=== PATIENT | female | born 1995 | race African-American/Black ===

== ENCOUNTER 2019-11-17 16:31 | Emergency (ER) | payer MEDICAID ==
--- NOTE | 2019-11-17 16:50 | ER Document Report ---
ED Medical Screen (RME) - General Chief Complaint: Abdominal Pain Stated Complaint: ABDOMINAL PAIN Time Seen by Provider: 11/17/19 16:42 Primary Care Provider: RACEHL ORTEGA MD [Primary Care Provider] - Follow up as needed Notes: HPI: 24-year-old obese female presenting to the emergency department complaining of upper abdominal pain over the last 2 to 3 days. Decreased appetite. No vomiting. No fever. No dysuria although she states she has seen some blood in her urine. PHYSICAL EXAMINATION: Mild tenderness across the upper abdomen on palpation limited exam by positioning in triage I have greeted and performed a rapid initial assessment of this patient. A comprehensive ED assessment and evaluation of the patient, analysis of test results and completion of medical decision making process will be conducted by an additional ED providers. TRAVEL OUTSIDE OF THE [place] IN LAST 30 DAYS: No - Related Data Allergies/Adverse Reactions: amoxicillin trihydrate [From Augmentin] Allergy (Intermediate, Verified 11/17/19 16:41) Hives Potassium Clavulanate * [From Augmentin] Allergy (Intermediate, Verified 11/17/19 16:41) Hives doxycycline Allergy (Verified 11/17/19 16:41) Penicillins Allergy (Verified 11/17/19 16:41) Home Medications: metformin. insulin Past Medical History - Social History Chew tobacco use (# tins/day): No Frequency of alcohol use: Social Drug Abuse: None Family history: DM, Hypertension Pulmonary Medical History: Reports: Hx Asthma Endocrine Medical History: Reports: Hx Diabetes Mellitus Type 2 Past Surgical History: Reports: Hx Section - Immunizations Immunizations up to date: Yes Hx Diphtheria, Pertussis, Tetanus Vaccination: Yes Physical Exam - Vital signs Vitals: Temp Pulse Resp BP Pulse Ox 99.2 F 96 17 132/76 H 96 11/17/19 16:36 11/17/19 16:36 11/17/19 16:36 11/17/19 16:36 11/17/19 16:36 Course - Vital Signs Vital signs: Temp Pulse Resp BP Pulse Ox 99.2 F 96 17 132/76 H 96 11/17/19 16:42 11/17/19 16:36 11/17/19 16:36 11/17/19 16:36 11/17/19 16:36 Doctor's Discharge - Discharge Referrals: RACHEL ORTEGA MD [Primary Care Provider] - Follow up as needed
[2019-11-17 17:18] LABS: ABSOLUTE EOSINOPHILS # (AUTO) 0.4 10^3/uL (0.0-0.6); ABSOLUTE LYMPHOCYTES (AUTO) 3.6 10^3/uL (0.5-4.7); ABSOLUTE MONOCYTES (AUTO) 0.6 10^3/uL (0.1-1.4); ABSOLUTE NEUT (AUTO) 3.8 10^3/uL (1.7-8.2); BASOPHILS % (AUTO) 0.6 % (0-2); EOSINOPHILS % (AUTO) 4.5 % (0-6); HEMATOCRIT 41.5 % (36.0-47.0); HEMOGLOBIN 14.1 g/dL (12.0-15.5); LYMPHOCYTES % (AUTO) 42.8 % (13-45); MEAN CORPUSCULAR HEMOGLOBIN 26.2 pg (27.0-33.4); MEAN CORPUSCULAR HGB CONC 33.8 g/dL (32.0-36.0); MEAN CORPUSCULAR VOLUME 78 fl (80-97); MONOCYTES % (AUTO) 6.7 % (3-13); PLATELET COUNT 287 10^3/uL (150-450); RED BLOOD COUNT 5.35 10^6/uL (3.72-5.28); RED CELL DISTRIBUTION WIDTH 14.3 % (11.5-14.0); SEGMENTED NEUTROPHILS % (AUTO) 45.4 % (42-78); TOTAL CELLS COUNTED % (AUTO) 100 %; WHITE BLOOD COUNT 8.5 10^3/uL (4.0-10.5)
[2019-11-17 17:35] LABS: ALBUMIN 4.2 g/dL (3.5-5.0); ALKALINE PHOSPHATASE 114 U/L (38-126); ANION GAP 8 (5-19); ASPARTATE AMINO TRANSFERASE 30 U/L (14-36); BILIRUBIN,TOTAL 0.4 mg/dL (0.2-1.3); BLOOD UREA NITROGEN 8 mg/dL (7-20); CALCIUM 9.5 mg/dL (8.4-10.2); CARBON DIOXIDE 23 mmol/L (22-30); CHLORIDE 104 mmol/L (98-107); GLUCOSE 287 mg/dL (75-110); POTASSIUM 4.3 mmol/L (3.6-5.0); TOTAL PROTEIN 7.7 g/dL (6.3-8.2)
[2019-11-17 17:39] LABS: APPEARANCE,URINE CLOUDY; BILIRUBIN,URINE NEGATIVE (NEGATIVE); COLOR,URINE YELLOW; GLUCOSE, URINE >=500 mg/dL (NEGATIVE); KETONES,URINE 20 mg/dL (NEGATIVE); LEUKOCYTE ESTERASE,URINE TRACE (NEGATIVE); NITRITE,URINE NEGATIVE (NEGATIVE); PROTEIN,URINE 100 mg/dL (NEGATIVE); URINE SPECIFIC GRAVITY 1.043; UROBILINOGEN,URINE NEGATIVE mg/dL (<2.0)
[2019-11-17] MEDS ORDERED: NORMAL SALINE 1000 ML 1,000 ML IV PRN (18:19)
[2019-11-17] MEDS ORDERED: NITROFURANTOIN MONOHYD/M-CRYST 100 MG CAPSULE PO ONE (18:20)
--- NOTE | 2019-11-17 18:27 | RADIOLOGY REPORT (SQ) ---
EXAM DESCRIPTION: U/S ABDOMEN LIMITED W/O DOP IMAGES COMPLETED DATE/TIME: 11/17/2019 6:11 pm REASON FOR STUDY: upper abd pain COMPARISON: None. TECHNIQUE: Dynamic and static grayscale images acquired of the abdomen and recorded on PACS. Additio nal selected color Doppler and spectral images recorded. LIMITATIONS: None. FINDINGS: PANCREAS: No masses. The tail was obscured by gas. LIVER: Increased echogenicity. No masses. LIVER VASCULATURE: Normal directional flow of the main portal vein and hepatic veins. GALLBLADDER: No stones. Normal wall thickness. No pericholecystic fluid. ULTRASOUND-DETECTED PLASENCIA'S SIGN: Negative. INTRAHEPATIC DUCTS AND COMMON DUCT: CBD and intrahepatic ducts normal caliber. No filling defects. AORTA: No aneurysm. RIGHT KIDNEY: Normal size, 12 cm. Normal echogenicity. No solid or suspicious masses. No hydronephro sis. No calcifications. PERITONEAL AND RIGHT PLEURAL SPACE: No ascites or effusions. OTHER: No other significant findings. IMPRESSION: Hepatic steatosis. TECHNICAL DOCUMENTATION: JOB ID: [id number] 2010 [employer]- All Rights Reserved Reading location - IP/workstation name: [email or web address]
[2019-11-17 19:18] LABS: VENOUS BLOOD BASE EXCESS 0.3 mmol/L; VENOUS BLOOD HCO3 26.3 mmol/L (20-32); VENOUS BLOOD PCO2 47.5 mmHg (35-63); VENOUS BLOOD PH 7.36 (7.30-7.42)
--- NOTE | 2019-11-17 19:44 | ER Document Report ---
HPI - HPI Patient complains to provider of: Abdominal pain Time Seen by Provider: 11/17/19 16:42 Onset: Yesterday Onset/Duration: Gradual Quality of pain: No pain Pain Level: 3 Associated Symptoms: None Exacerbated by: Denies Relieved by: Denies - CONSTITUTIONAL Constitutional: DENIES: Fever, Chills - GASTROINTESTINAL Gastrointestinal: REPORTS: Abdominal Pain. DENIES: Black / Bloody Stools - URINARY Urinary: DENIES: Dysuria - REPRODUCTIVE Reproductive: DENIES: : Past Medical History - General Information source: Patient - Social History Smoking Status: Current Every Day Smoker Chew tobacco use (# tins/day): No Frequency of alcohol use: Social Drug Abuse: None Family History: Reviewed & Not Pertinent Patient has homicidal ideation: No Pulmonary Medical History: Reports: Hx Asthma Endocrine Medical History: Reports: Hx Diabetes Mellitus Type 2 Past Surgical History: Reports: Hx Section - Immunizations Immunizations up to date: Yes Hx Diphtheria, Pertussis, Tetanus Vaccination: Yes Vertical Provider Document - CONSTITUTIONAL Agree With Documented VS: Yes - INFECTION CONTROL TRAVEL OUTSIDE OF THE [place] IN LAST 30 DAYS: No - HEENT HEENT: Atraumatic, Conjuctival Injection, Normocephalic, PERRLA - NECK Neck: Normal Inspection - RESPIRATORY Respiratory: Breath Sounds Normal, No Respiratory Distress - CARDIOVASCULAR Cardiovascular: Regular Rate, Regular Rhythm - GI/ABDOMEN Gastrointestinal: Abdomen Soft, Abdomen Non-Tender - REPRODUCTIVE Female Genitalia: Normal Inspection, Abnormal Inspection - BACK Back: Normal Inspection - MUSCULOSKELETAL/EXTREMETIES Musculoskeletal/Extremeties: MAEW - NEURO Level of Consciousness: Awake, Alert Motor/Sensory: No Motor Deficit, No Sensory Deficit, No Pronator Drift - DERM Integumentary: Warm, Dry Course - Vital Signs Vital signs: Temp Pulse Resp BP Pulse Ox 99.2 F 96 17 132/76 H 96 11/17/19 16:42 11/17/19 16:36 11/17/19 16:36 11/17/19 16:36 11/17/19 16:36 - Laboratory Result Diagrams: 11/17/19 16:51 11/17/19 16:51 Laboratory results interpreted by me: 11/17/19 11/17/19 11/17/19 16:51 16:51 16:51 RBC 5.35 H MCV 78 L MCH 26.2 L RDW 14.3 H Sodium 135.1 L Creatinine 0.46 L Glucose 287 H ALT 37 H Urine Protein 100 H Urine Glucose (UA) >=500 H Urine Ketones 20 H Urine Blood LARGE H Ur Leukocyte Esterase TRACE H - Diagnostic Test Radiology results interpreted by me: 11/17/19 19:40 Labs- All tests 24 hr 11/17/19 11/17/19 11/17/19 16:51 16:51 16:51 WBC 8.5 RBC 5.35 H Hgb 14.1 Hct 41.5 MCV 78 L MCH 26.2 L MCHC 33.8 RDW 14.3 H Plt Count 287 Lymph % (Auto) 42.8 [place] % (Auto) 6.7 Eos % (Auto) 4.5 Baso % (Auto) 0.6 Absolute Neuts (auto) 3.8 Absolute Lymphs (auto) 3.6 Absolute Monos (auto) 0.6 Absolute Eos (auto) 0.4 Absolute Basos (auto) 0.0 Seg Neutrophils % 45.4 VBG pH VBG pCO2 VBG HCO3 VBG Base Excess Sodium 135.1 L Potassium 4.3 Chloride 104 Carbon Dioxide 23 Anion Gap 8 BUN 8 Creatinine 0.46 L Est GFR ( Amer) > 60 Est GFR (MDRD) Non-Af > 60 Glucose 287 H Calcium 9.5 Total Bilirubin 0.4 Direct Bilirubin 0.0 Neonat Total Bilirubin Not Reportable Neonat Direct Bilirubin Not Reportable Neonat Indirect Bili Not Reportable AST 30 ALT 37 H Alkaline Phosphatase 114 Total Protein 7.7 Albumin 4.2 Lipase 210.7 Serum HCG, Qual NEGATIVE Urine Color Urine Appearance Urine pH Ur Specific Royal Urine Protein Urine Glucose (UA) Urine Ketones Urine Blood Urine Nitrite Urine Bilirubin Urine Urobilinogen Ur Leukocyte Esterase Urine WBC (Auto) Urine RBC (Auto) Squamous Epi Cells Auto Urine Yeast (Budding) Urine Ascorbic Acid 11/17/19 11/17/19 16:51 19:10 WBC RBC Hgb Hct MCV MCH MCHC RDW Plt Count Lymph % (Auto) [place] % (Auto) Eos % (Auto) Baso % (Auto) Absolute Neuts (auto) Absolute Lymphs (auto) Absolute Monos (auto) Absolute Eos (auto) Absolute Basos (auto) Seg Neutrophils % VBG pH 7.36 VBG pCO2 47.5 VBG HCO3 26.3 VBG Base Excess 0.3 Sodium Potassium Chloride Carbon Dioxide Anion Gap BUN Creatinine Est GFR ( Amer) Est GFR (MDRD) Non-Af Glucose Calcium Total Bilirubin Direct Bilirubin Neonat Total Bilirubin Neonat Direct Bilirubin Neonat Indirect Bili AST ALT Alkaline Phosphatase Total Protein Albumin Lipase Serum HCG, Qual Urine Color YELLOW Urine Appearance CLOUDY Urine pH 6.0 Ur Specific Royal 1.043 Urine Protein 100 H Urine Glucose (UA) >=500 H Urine Ketones 20 H Urine Blood LARGE H Urine Nitrite NEGATIVE Urine Bilirubin NEGATIVE Urine Urobilinogen NEGATIVE Ur Leukocyte Esterase TRACE H Urine WBC (Auto) 3 Urine RBC (Auto) >182 Squamous Epi Cells Auto 45 Urine Yeast (Budding) PRESENT Urine Ascorbic Acid NEGATIVE Discharge - Discharge Clinical Impression: High glucose level UTI (urinary tract infection) Qualifiers: Urinary tract infection type: acute cystitis Hematuria presence: without hematuria Qualified Code(s): N30.00 - Acute cystitis without hematuria Condition: Fair Disposition: HOME, SELF-CARE Instructions: Urinary Tract Infection ([facility]), Urinary Anesthetic Agent ([facility]) Additional Instructions: Urinary Tract Infection Your evaluation indicates that you have a urinary tract infection. This is due to germs growing in the bladder. This is a common problem. This infection usually responds quickly to antibiotics. Your antibiotic should be taken exactly as prescribed. Drink plenty of fluids -- three to four quarts a day. Occasionally, a bladder anesthetic will be prescribed to help stop the feeling of urgency until the antibiotic has a chance to clear the infection. This may cause your urine to be dark orange. Certain urine infections require a culture. If the doctor obtained a culture, the results will be back in two days. You should call to see if a change in treatment is needed. A repeat urinalysis after you finish treatment is often recommended. The physician will let you know if further testing is required. Call the doctor if you develop fever, chills, flank pain, inability to urinate, or blood in the urine. Prescriptions: Nitrofurantoin Monohyd/M-Cryst [Macrobid 100 mg Capsule] 100 mg PO BID #20 cap Phenazopyridine HCl [Pyridium 200 mg Tablet] 200 mg PO TID #15 tablet Referrals: RACHEL ORTEGA MD [ACTIVE STAFF] - Follow up as needed
[2019-11-17 20:15] VITALS: BP 122/72
== END 2019-11-17 20:15 | disposition home or self-care (01) ==
LOC: ER 16:31
DX: N30.00 Acute cystitis without hematuria (principal); E11.9 Type 2 diabetes mellitus without complications; K76.0 Fatty (change of) liver, not elsewhere classified; J45.909 Unspecified asthma, uncomplicated; F17.200 Nicotine dependence, unspecified, uncomplicated; Z79.4 Long term (current) use of insulin
CPT/HCPCS: 99284; 36415; 83690; 84703; 85025; 80053; 81001; 82803; 76705; J7030; J3490; 96360; J8499

== ENCOUNTER 2020-01-18 07:00 | Day surgery (SDC) | payer MEDICAID ==
[2020-01-12 10:30] LABS: HEMATOCRIT 41.8 % (36.0-47.0); HEMOGLOBIN 13.6 g/dL (12.0-15.5); MEAN CORPUSCULAR HEMOGLOBIN 25.6 pg (27.0-33.4); MEAN CORPUSCULAR HGB CONC 32.6 g/dL (32.0-36.0); MEAN CORPUSCULAR VOLUME 78 fl (80-97); PLATELET COUNT 267 10^3/uL (150-450); RED BLOOD COUNT 5.32 10^6/uL (3.72-5.28); RED CELL DISTRIBUTION WIDTH 13.9 % (11.5-14.0); WHITE BLOOD COUNT 7.1 10^3/uL (4.0-10.5)
[~2020-01-18 07:00] MED LIST: LACTATED RINGERS 1000 ML IV PRN; LIDOCAINE 0.5% INJ-PF (5 MG/ML) 50 ML SDV SUBCUT PRN; METRONIDAZOLE 500 MG/NS RTU 500 MG/100 ML RTUPB IV ONE; METRONIDAZOLE 500 MG/NS RTU 500 MG/100 ML RTUPB IV PRN
[2020-01-18] MEDS ORDERED: BUPIVACAINE HCL 0.25 % INJ/PF (2.5 MG/1 ML) 30 ML VIAL ONE (11:55)
[2020-01-18] MEDS ORDERED: LIDOCAINE 0.5% INJ-PF (5 MG/ML) 50 ML SDV ONE (11:55)
[2020-01-18] MEDS ORDERED: FENTANYL CITRATE INJ/PF 100 MCG/2 ML AMPUL ONE (12:02)
[2020-01-18] MEDS ORDERED: PROPOFOL INJ 200 MG/20 ML VIAL IV ONE (12:02)
[2020-01-18] MEDS ORDERED: MIDAZOLAM 2 MG/2 ML INJ ONE (12:02)
[2020-01-18] MEDS ORDERED: DEXMEDETOMIDINE INJ 80 MCG/20 ML VIAL IV ONE (12:25)
[2020-01-18] MEDS ORDERED: PROMETHAZINE HCL INJ 25 MG/1 ML VIAL IV PRN (12:56)
[2020-01-18] MEDS ORDERED: DIPHENHYDRAMINE HCL 50 MG/ML VIAL IV PRN (12:56)
[2020-01-18] MEDS ORDERED: MEPERIDINE HCL/PF INJ 25 MG/1 ML DISP.SYRIN IV PRN (12:56)
[2020-01-18] MEDS ORDERED: OXYCODONE-ACETAMINOPHEN 5-325 MG TABLET PO PRN (13:10)
--- NOTE | 2020-01-18 13:10 | Discharge Summary ---
Discharge Summary (SDC) - Discharge Final Diagnosis: right breast abscess Date of Surgery: 01/18/20 Discharge Date: 01/18/20 Condition: Good Treatment or Instructions: WOUND CARE: You may shower 24 hours after surgery. Remove outer dressing when showering. You may allow warm water and soap to wash over area. Leave drain intact. Pat dry and re cover with gauze and tape. Change gauze dressing when saturated. Do not submerge incision for 2 weeks. No swimming or taking a bath. PAIN MANAGEMENT: You may take Toradol 10mg one pill by mouth every six hours as needed for pain. Do not take additional NSAIDs with medication. You may take Tyelnol as needed. FOLLOW UP: You may follow up at [facility] in 7 days for wound evaluation. Call clinic sooner with questions/concerns. Prescriptions: Ketorolac Tromethamine [Toradol 10 mg Tablet] 10 mg PO Q6HP PRN #20 tablet PRN Reason: Referrals: VELIA IBRAHIM MD [Primary Care Provider] - Discharge Diet: As Tolerated Discharge Activity: No tub bath, Walk Frequently, Other - no swimming Report the Following to Your Physician Immediately: Increase in Pain, Fever over 101 Degrees, Unusual Bleeding, Redness, Swelling, Warmth, Increased Soreness, Drainage-Foul Smelling
--- NOTE | 2020-01-18 13:15 | Operative Report ---
Operative Report DATE OF SURGERY: 01/18/20 PREOPERATIVE DIAGNOSIS: 1. Chronic right breast abscess. 2. Morbid obesity POSTOPERATIVE DIAGNOSIS: Same OPERATION: Wide excision of chronic right breast abscess cavity and closure over drain. Focused ultrasound of the right breast SURGEON: KEO MENDENHALL 1ST ACTUARIAL ASSOCIATE: BLAYNE ESTRADA ANESTHESIA: LMAC TISSUE REMOVED OR ALTERED: Right breast skin, subcutaneous tissue, and abscess cavity, chronic COMPLICATIONS: None ESTIMATED BLOOD LOSS: Scant INTRAOPERATIVE FINDINGS: See below PROCEDURE: Patient was in the preop holding area over the right breast was marked. She is then taken the main operating room where LMAC anesthesia was induced. The right breast, intertriginous zones and surface of the left breast prepped and draped in sterile fashion. Surgical plan and surgical timeout were conducted. Focused ultrasound of the right breast was performed. There was an area of hypoechogenicity underlying diagonally oriented scar on the medial aspect of the right breast, 3 o'clock position, at the border of the sternum. The skin was anesthetized with quarter percent Marcaine. A generous ellipse of skin, subcutaneous tissue and scar tissue was now removed using a series of #10 blade. The cavity created was approximately 2-1/2 x 5-1/2 x 3-1/2 cm in depth. The excision encompassed all of the chronic inflammatory and scar tissue. Surrounding subcutaneous tissue was viable and uninvolved. We felt the extirpation was complete. Bleeders were cauterized as encountered. The wound was closed merrily with multiple interrupted 3-0 Ethilon sutures. A Radhames drain was brought out through the inferior aspect of the incision and secured with a similar stitch. 4 x 4's applied. Patient tolerated procedure well, taken to recovery in stable condition. The physician facilities assistant, Ms. Cifuentes, provided assistance during this case by: assisting with tissue retraction, instillation of local anesthesia and closure of skin incisions.
[2020-01-18] MEDS: FENTANYL CITRATE INJ/PF 100 MCG/2 ML AMPUL IV PRN ×2 (13:25→13:30)
[2020-01-18] MEDS ORDERED: OXYCODONE-ACETAMINOPHEN 5-325 MG TABLET ONE ×2 (13:46→14:05)
[2020-01-18 15:19] VITALS: BP 137/85
== END 2020-01-18 15:05 | disposition home or self-care (01) ==
LOC: OROUT 07:00
PROVIDERS: ATTEND Surgery
DX: N61.1 Abscess of the breast and nipple (principal); N60.31 Fibrosclerosis of right breast; Z03.818 Encounter for observation for suspected exposure to other biological agents ruled out; E66.01 Morbid (severe) obesity due to excess calories; E11.9 Type 2 diabetes mellitus without complications; Z79.84 Long term (current) use of oral hypoglycemic drugs; Z79.4 Long term (current) use of insulin; Z79.899 Other long term (current) drug therapy
CPT/HCPCS: 36415; 82962; 85027; 87635; 81025; 83036; 88304 ×2; 00400; 19120; J2250; J3010; J3490 ×4; J2704; C9803; 400

== ENCOUNTER 2020-01-26 09:04 | Emergency (ER) | payer MEDICAID ==
[2020-01-26] MEDS ORDERED: HYDROCODONE/ACETAMINOPHEN 5-325 MG TABLET PO ONE ×2 (10:22→16:12)
--- NOTE | 2020-01-26 10:23 | ER Document Report ---
ED Medical Screen (RME) - General Chief Complaint: Post Surgical Pain Stated Complaint: POST OP PROBLEM Time Seen by Provider: 01/26/20 10:17 Primary Care Provider: VELIA IBRAHIM MD [Primary Care Provider] - Follow up as needed Mode of Arrival: Ambulatory Information source: Patient Notes: 24-year-old female presented to ED for complaint of pain at the surgical site. She states she had a drain tube placed into her right breast last Thursday. She states she has had a abscess to the left and right breast in 2016 he took them both out at that time but the right side did not heal and they did a surgery on Thursday left tube. She states she has not been able to sleep due to the pain. She states it is draining purulent drainage and then this morning the drainage was brown. She states the pain has been increasing instead of decreasing. She is alert oriented respirations regular nonlabored speaking in full sentences. We will get blood urine blood cultures and chest x-ray and have her examined. I have greeted and performed a rapid initial assessment of this patient. A comprehensive ED assessment and evaluation of the patient, analysis of test results and completion of medical decision making process will be conducted by an additional ED providers. TRAVEL OUTSIDE OF THE [place] IN LAST 30 DAYS: No - Related Data Allergies/Adverse Reactions: amoxicillin trihydrate [From Augmentin] Allergy (Intermediate, Verified 01/18/20 07:54) Hives Potassium Clavulanate * [From Augmentin] Allergy (Intermediate, Verified 01/18/20 07:54) Hives doxycycline Allergy (Verified 01/18/20 07:54) Penicillins Allergy (Verified 01/18/20 07:54) Past Medical History - Social History Family history: DM, Hypertension - Past Medical History Cardiac Medical History: Denies: Hx Coronary Artery Disease, Hx Heart Attack, Hx Hypertension Pulmonary Medical History: Denies: Hx Asthma, Hx Bronchitis, Hx COPD, Hx Pneumonia Neurological Medical History: Denies: Hx Cerebrovascular Accident, Hx Seizures Endocrine Medical History: Reports: Hx Diabetes Mellitus Type 2 Musculoskeltal Medical History: Reports Hx Arthritis Past Surgical History: Reports: Hx Section - Immunizations Immunizations up to date: Yes Hx Diphtheria, Pertussis, Tetanus Vaccination: Yes Physical Exam - Vital signs Vitals: Temp Pulse Resp BP Pulse Ox 99.2 F 99 18 139/76 H 100 09/17/20 09:11 01/26/20 09:11 01/26/20 09:11 01/26/20 09:11 01/26/20 09:11 Course - Vital Signs Vital signs: Temp Pulse Resp BP Pulse Ox 99.2 F 99 18 139/76 H 100 01/26/20 09:11 01/26/20 09:11 01/26/20 09:11 01/26/20 09:11 01/26/20 09:11 Doctor's Discharge - Discharge Referrals: VELIA IBRAHIM MD [Primary Care Provider] - Follow up as needed
--- NOTE | 2020-01-26 11:04 | RADIOLOGY REPORT (SQ) ---
EXAM DESCRIPTION: CHEST 2 VIEWS IMAGES COMPLETED DATE/TIME: 01/26/2020 10:55 am REASON FOR STUDY: Pain wound site chest COMPARISON: 03/06/2014 EXAM PARAMETERS: NUMBER OF VIEWS: two views TECHNIQUE: Digital Frontal and Lateral radiographic views of the chest acquired. RADIATION DOSE: NA LIMITATIONS: none FINDINGS: LUNGS AND PLEURA: No opacities, masses or pneumothorax. No pleural effusion. MEDIASTINUM AND HILAR STRUCTURES: No masses or contour abnormalities. HEART AND VASCULAR STRUCTURES: Heart normal size. No evidence for failure. BONES: No acute findings. HARDWARE: None in the chest. OTHER: No other significant finding. IMPRESSION: NO ACUTE RADIOGRAPHIC FINDING IN THE CHEST. TECHNICAL DOCUMENTATION: JOB ID: [id number] 2010 [employer]- All Rights Reserved Reading location - IP/workstation name: [email or web address]
[2020-01-26 11:05] LABS: ABSOLUTE EOSINOPHILS # (AUTO) 0.4 10^3/uL (0.0-0.6); ABSOLUTE MONOCYTES (AUTO) 0.5 10^3/uL (0.1-1.4); ABSOLUTE NEUT (AUTO) 3.7 10^3/uL (1.7-8.2); BASOPHILS % (AUTO) 0.3 % (0-2); EOSINOPHILS % (AUTO) 4.7 % (0-6); HEMATOCRIT 43.3 % (36.0-47.0); HEMOGLOBIN 14.3 g/dL (12.0-15.5); LYMPHOCYTES % (AUTO) 39.4 % (13-45); MEAN CORPUSCULAR HEMOGLOBIN 25.8 pg (27.0-33.4); MEAN CORPUSCULAR VOLUME 78 fl (80-97); MONOCYTES % (AUTO) 6.4 % (3-13); PLATELET COUNT 257 10^3/uL (150-450); RED BLOOD COUNT 5.54 10^6/uL (3.72-5.28); RED CELL DISTRIBUTION WIDTH 14.4 % (11.5-14.0); SEGMENTED NEUTROPHILS % (AUTO) 49.2 % (42-78); TOTAL CELLS COUNTED % (AUTO) 100 %; WHITE BLOOD COUNT 7.5 10^3/uL (4.0-10.5)
[2020-01-26 11:20] LABS: ALBUMIN 4.3 g/dL (3.5-5.0); ALKALINE PHOSPHATASE 131 U/L (38-126); ANION GAP 11 (5-19); ASPARTATE AMINO TRANSFERASE 21 U/L (14-36); BILIRUBIN,DIRECT 0.3 mg/dL (0.0-0.4); BILIRUBIN,TOTAL 0.5 mg/dL (0.2-1.3); BLOOD UREA NITROGEN 3 mg/dL (7-20); CALCIUM 9.7 mg/dL (8.4-10.2); CARBON DIOXIDE 26 mmol/L (22-30); CHLORIDE 101 mmol/L (98-107); GLUCOSE 355 mg/dL (75-110); POTASSIUM 4.5 mmol/L (3.6-5.0); TOTAL PROTEIN 7.4 g/dL (6.3-8.2)
--- NOTE | 2020-01-26 16:30 | ER Document Report ---
HPI - HPI Patient complains to provider of: Postop pain Time Seen by Provider: 01/26/20 10:17 Onset: Last week Onset/Duration: Worse Quality of pain: Sharp Pain Level: 5 Context: Patient states that she had an abscess to the breast that was operated on last week. Patient reports increased drainage for the past 2 days from the drainage tube. Patient states that she has a follow-up appointment tomorrow with the surgeon. Patient denies any fever. Patient states she was only given a prescription for Toradol but this medicine did not help her pain symptoms. Associated Symptoms: Other - Postoperative pain to breast abscess. denies: Fever Exacerbated by: Movement Relieved by: Denies Similar symptoms previously: Yes Recently seen / treated by doctor: Yes - ROS ROS below otherwise negative: Yes Systems Reviewed and Negative: Yes All other systems reviewed and negative - CONSTITUTIONAL Constitutional: DENIES: Fever, Chills - GASTROINTESTINAL Gastrointestinal: DENIES: Nausea - REPRODUCTIVE Reproductive: DENIES: : - DERM Skin Color: Normal Skin Problems: None Past Medical History - General Information source: Patient - Social History Smoking Status: Never Smoker Frequency of alcohol use: None Drug Abuse: None Occupation: [employer] Lives with: Family Family History: Reviewed & Not Pertinent - Past Medical History Cardiac Medical History: Denies: Hx Coronary Artery Disease, Hx Heart Attack, Hx Hypertension Neurological Medical History: Denies: Hx Cerebrovascular Accident, Hx Seizures Endocrine Medical History: Reports: Hx Diabetes Mellitus Type 2 Musculoskeletal Medical History: Reports Hx Arthritis Past Surgical History: Reports: Hx Breast Surgery, Hx Section - Immunizations Immunizations up to date: Yes Hx Diphtheria, Pertussis, Tetanus Vaccination: Yes Vertical Provider Document - CONSTITUTIONAL Agree With Documented VS: Yes Exam Limitations: No Limitations General Appearance: WD/WN, No Apparent Distress - INFECTION CONTROL TRAVEL OUTSIDE OF THE [place] IN LAST 30 DAYS: No - HEENT HEENT: Atraumatic, Normocephalic - NECK Neck: Normal Inspection, Supple. negative: Lymphadenopathy-Left, Lymphadenopathy-Right - RESPIRATORY Respiratory: Breath Sounds Normal, No Respiratory Distress - CARDIOVASCULAR Cardiovascular: Regular Rate, Regular Rhythm - BACK Back: Normal Inspection - MUSCULOSKELETAL/EXTREMETIES Musculoskeletal/Extremeties: MAEW, FROM - NEURO Level of Consciousness: Awake, Alert, Appropriate Motor/Sensory: No Motor Deficit - DERM Integumentary: Warm, Dry Notes: Patient with right breast sutured laceration with drain in place, patient with serosanguineous drainage to dressing, no erythema surrounding margins of wound, no calor, area is mildly tender to palpation Course - Re-evaluation Re-evalutation: 01/26/20 16:27 Patient presents for postoperative pain to right breast abscess, patient without any fever and without any overt signs of infection at this time. Patient with serosanguineous drainage to dressing, patient nontoxic in appearance. Patient did have incidental elevated blood sugar, patient states she has been compliant with taking her diabetic medications although is not compliant with eating a diabetic diet. No concern for DKA at this time. Consulted with Dr. Tabor regarding patient presentation, he advises outpatient follow-up in the office tomorrow as planned and does not give any additional recommendations at this time. 01/26/20 16:28 01/26/20 16:32 - Vital Signs Vital signs: Temp Pulse Resp BP Pulse Ox 98.1 F 95 18 132/71 H 100 01/26/20 15:50 01/26/20 15:50 01/26/20 15:50 01/26/20 15:50 01/26/20 15:50 - Laboratory Result Diagrams: 01/26/20 10:35 01/26/20 10:35 Laboratory results interpreted by me: 01/26/20 01/26/20 10:35 10:35 RBC 5.54 H MCV 78 L MCH 25.8 L RDW 14.4 H BUN 3 L Creatinine 0.46 L Glucose 355 H Alkaline Phosphatase 131 H 01/26/20 16:28 Labs- All tests 24 hr 01/26/20 01/26/20 10:35 10:35 WBC 7.5 RBC 5.54 H Hgb 14.3 Hct 43.3 MCV 78 L MCH 25.8 L MCHC 33.0 RDW 14.4 H Plt Count 257 Lymph % (Auto) 39.4 [place] % (Auto) 6.4 Eos % (Auto) 4.7 Baso % (Auto) 0.3 Absolute Neuts (auto) 3.7 Absolute Lymphs (auto) 3.0 Absolute Monos (auto) 0.5 Absolute Eos (auto) 0.4 Absolute Basos (auto) 0.0 Seg Neutrophils % 49.2 Sodium 138.0 Potassium 4.5 Chloride 101 Carbon Dioxide 26 Anion Gap 11 BUN 3 L Creatinine 0.46 L Est GFR ( Amer) > 60 Est GFR (MDRD) Non-Af > 60 Glucose 355 H Calcium 9.7 Total Bilirubin 0.5 Direct Bilirubin 0.3 Neonat Total Bilirubin Not Reportable Neonat Direct Bilirubin Not Reportable Neonat Indirect Bili Not Reportable AST 21 ALT 33 Alkaline Phosphatase 131 H Total Protein 7.4 Albumin 4.3 Discharge - Discharge Clinical Impression: Encounter for wound re-check, Postoperative pain, Hyperglycemia Condition: Stable Disposition: HOME, SELF-CARE Instructions: Diabetes (OM), Oral Narcotic Medication (OM) Additional Instructions: Return immediately for any new or worsening symptoms Followup with Dr. Tabor office tomorrow as planned, keep wound covered Take your diabetic medication as prescribed and eat a diabetic diet, you may need to follow-up with your primary doctor for recheck of your diabetic regimen if you do not have good control of your blood sugars. Prescriptions: Hydrocodone/Acetaminophen [[place] 5-325 mg Tablet] 1 tab PO Q6 PRN #8 tablet PRN Reason: Forms: Return to Work Referrals: VELIA IBRAHIM MD [Primary Care Provider] - Follow up as needed KEO TABOR MD [ACTIVE STAFF] - Follow up tomorrow
[2020-01-26 16:47] VITALS: BP 138/69
== END 2020-01-26 16:47 | disposition home or self-care (01) ==
LOC: ER 09:04
DX: G89.18 Other acute postprocedural pain (principal); E11.65 Type 2 diabetes mellitus with hyperglycemia
CPT/HCPCS: 36415; 71046; 80053; 85025; 87040; 87077; 87150; 87186; 99284

== ENCOUNTER 2020-03-15 12:04 | Emergency (ER) | payer MEDICAID ==
--- NOTE | 2020-03-15 12:38 | ER Document Report ---
ED Medical Screen (RME) - General Chief Complaint: Chest Pain Stated Complaint: CHEST PAIN/BLOOD PRESSURE PROBLEM Time Seen by Provider: 03/15/20 12:35 Primary Care Provider: KEO MENDENHALL MD [Primary Care Provider] - Follow up as needed Mode of Arrival: Ambulatory Information source: Patient Notes: 24-year-old female presents to ED for left leg pain that started this morning. She states when she went to the doctor's office she started having chest pain and while she was there her blood pressure was 150/102. She was admitted first and they sent her to the emergency room for chest pain. He states she still has some chest pain. We will get blood urine and chest x-ray she has already had an EKG. She will be seen by another provider. Lungs were clear blood pressure was 147/98 in the P3 area. I have greeted and performed a rapid initial assessment of this patient. A comprehensive ED assessment and evaluation of the patient, analysis of test resu lts and completion of medical decision making process will be conducted by an additional ED providers. TRAVEL OUTSIDE OF THE [place] IN LAST 30 DAYS: No - Related Data Allergies/Adverse Reactions: amoxicillin trihydrate [From Augmentin] Allergy (Intermediate, Verified 03/15/20 12:27) Hives Potassium Clavulanate * [From Augmentin] Allergy (Intermediate, Verified 03/15/20 12:27) Hives doxycycline Allergy (Verified 03/15/20 12:27) Penicillins Allergy (Verified 03/15/20 12:27) Past Medical History - Social History Chew tobacco use (# tins/day): No Frequency of alcohol use: None Drug Abuse: None Family history: DM, Hypertension - Past Medical History Cardiac Medical History: Denies: Hx Coronary Artery Disease, Hx Heart Attack, Hx Hypertension Pulmonary Medical History: Denies: Hx Asthma, Hx Bronchitis, Hx COPD, Hx Pneumonia Neurological Medical History: Denies: Hx Cerebrovascular Accident, Hx Seizures Endocrine Medical History: Reports: Hx Diabetes Mellitus Type 2 Musculoskeltal Medical History: Reports Hx Arthritis Past Surgical History: Reports: Hx Breast Surgery, Hx Section - Immunizations Immunizations up to date: Yes Hx Diphtheria, Pertussis, Tetanus Vaccination: Yes Physical Exam - Vital signs Vitals: Temp Pulse Resp BP Pulse Ox 98.3 F 88 18 145/78 H 98 03/15/20 12:10 03/15/20 12:10 03/15/20 12:10 03/15/20 12:10 03/15/20 12:10 Course - Vital Signs Vital signs: Temp Pulse Resp BP Pulse Ox 98.3 F 88 18 145/78 H 98 03/15/20 12:10 03/15/20 12:10 03/15/20 12:10 03/15/20 12:10 03/15/20 12:10 Doctor's Discharge - Discharge Referrals: KEO MENDENHALL MD [Primary Care Provider] - Follow up as needed
[2020-03-15 13:03] LABS: ABSOLUTE EOSINOPHILS # (AUTO) 0.3 10^3/uL (0.0-0.6); ABSOLUTE MONOCYTES (AUTO) 0.4 10^3/uL (0.1-1.4); ABSOLUTE NEUT (AUTO) 3.7 10^3/uL (1.7-8.2); BASOPHILS % (AUTO) 0.5 % (0-2); EOSINOPHILS % (AUTO) 3.7 % (0-6); HEMATOCRIT 41.2 % (36.0-47.0); HEMOGLOBIN 13.7 g/dL (12.0-15.5); LYMPHOCYTES % (AUTO) 40.3 % (13-45); MEAN CORPUSCULAR HEMOGLOBIN 26.2 pg (27.0-33.4); MEAN CORPUSCULAR HGB CONC 33.3 g/dL (32.0-36.0); MEAN CORPUSCULAR VOLUME 79 fl (80-97); MONOCYTES % (AUTO) 5.8 % (3-13); PLATELET COUNT 271 10^3/uL (150-450); RED BLOOD COUNT 5.24 10^6/uL (3.72-5.28); RED CELL DISTRIBUTION WIDTH 14.5 % (11.5-14.0); SEGMENTED NEUTROPHILS % (AUTO) 49.7 % (42-78); TOTAL CELLS COUNTED % (AUTO) 100 %; WHITE BLOOD COUNT 7.5 10^3/uL (4.0-10.5)
[2020-03-15 13:21] LABS: ALKALINE PHOSPHATASE 103 U/L (38-126); ANION GAP 9 (5-19); ASPARTATE AMINO TRANSFERASE 28 U/L (14-36); BILIRUBIN,DIRECT 0.1 mg/dL (0.0-0.4); BILIRUBIN,TOTAL 0.4 mg/dL (0.2-1.3); BLOOD UREA NITROGEN 6 mg/dL (7-20); CALCIUM 9.4 mg/dL (8.4-10.2); CARBON DIOXIDE 26 mmol/L (22-30); CHLORIDE 104 mmol/L (98-107); GLUCOSE 228 mg/dL (75-110); POTASSIUM 4.4 mmol/L (3.6-5.0); TOTAL PROTEIN 7.2 g/dL (6.3-8.2)
--- NOTE | 2020-03-15 13:48 | RADIOLOGY REPORT (SQ) ---
EXAM DESCRIPTION: CHEST 2 VIEWS IMAGES COMPLETED DATE/TIME: 03/15/2020 1:15 pm REASON FOR STUDY: chest pain COMPARISON: None. EXAM PARAMETERS: NUMBER OF VIEWS: two views TECHNIQUE: Digital Frontal and Lateral radiographic views of the chest acquired. RADIATION DOSE: NA LIMITATIONS: none FINDINGS: LUNGS AND PLEURA: No opacities, masses or pneumothorax. No pleural effusion. MEDIASTINUM AND HILAR STRUCTURES: No masses or contour abnormalities. HEART AND VASCULAR STRUCTURES: Heart normal size. No evidence for failure. BONES: No acute findings. HARDWARE: None in the chest. OTHER: No other significant finding. IMPRESSION: NO ACUTE RADIOGRAPHIC FINDING IN THE CHEST. TECHNICAL DOCUMENTATION: JOB ID: [id number] [employer]- All Rights Reserved Reading location - IP/workstation name: [email or web address]
[2020-03-15] MEDS ORDERED: NORMAL SALINE 1000 ML 1,000 ML IV ONE ×2 (14:29→16:40)
--- NOTE | 2020-03-15 14:29 | ER Document Report ---
ED General - General Chief Complaint: Chest Pain Stated Complaint: CHEST PAIN/BLOOD PRESSURE PROBLEM Time Seen by Provider: 03/15/20 12:35 Primary Care Provider: MINNIE BERG MD [ACTIVE STAFF] - Follow up tomorrow KNENEDI BUTLER MD [ACTIVE PROVISIONAL STAFF] - Follow up tomorrow Mode of Arrival: Ambulatory TRAVEL OUTSIDE OF THE [place] IN LAST 30 DAYS: No - HPI Notes: 24-year-old female presents to the emergency room today for complaints of sub sternal chest pain that started while she was at [facility] to get her left leg pain evaluated. While she was at [facility], she started to have substernal chest pain and her blood pressure at [facility] was 150/102. Patient states that her substernal chest pain radiated to her right chest. [facility] first recommended that she go to the emergency room for further evaluation. denied any shortness of breath, nausea vomiting or diarrhea. Denies any prior history of any cardiac issues, patient states that she smokes occasionally. Social drinker. Denies any fevers or chills. No [id number] medication has been tried. Denies any trauma to her left leg. patient states she is having pain that started at her left knee and shoots down to her leg, including her calf. - Related Data Allergies/Adverse Reactions: amoxicillin trihydrate [From Augmentin] Allergy (Intermediate, Verified 03/15/20 12:27) Hives Potassium Clavulanate * [From Augmentin] Allergy (Intermediate, Verified 03/15/20 12:27) Hives doxycycline Allergy (Verified 03/15/20 12:27) Penicillins Allergy (Verified 03/15/20 12:27) Past Medical History - General Information source: Patient - Social History Smoking Status: Never Smoker Chew tobacco use (# tins/day): No Frequency of alcohol use: None Drug Abuse: None Family History: Reviewed & Not Pertinent Patient has homicidal ideation: No - Past Medical History Cardiac Medical History: Denies: Hx Coronary Artery Disease, Hx Heart Attack, Hx Hypertension Pulmonary Medical History: Denies: Hx Asthma, Hx Bronchitis, Hx COPD, Hx Pneumonia Neurological Medical History: Denies: Hx Cerebrovascular Accident, Hx Seizures Endocrine Medical History: Reports: Hx Diabetes Mellitus Type 2 Musculoskeletal Medical History: Reports Hx Arthritis Past Surgical History: Reports: Hx Breast Surgery, Hx Section - Immunizations Immunizations up to date: Yes Hx Diphtheria, Pertussis, Tetanus Vaccination: Yes Review of Systems - Review of Systems Constitutional: No symptoms reported EENT: No symptoms reported Cardiovascular: See HPI Respiratory: No symptoms reported Gastrointestinal: No symptoms reported Genitourinary: No symptoms reported Female Genitourinary: No symptoms reported Musculoskeletal: See HPI Skin: No symptoms reported Hematologic/Lymphatic: No symptoms reported Neurological/Psychological: No symptoms reported Physical Exam - Vital signs Vitals: Temp Pulse Resp BP Pulse Ox 98.3 F 88 18 145/78 H 98 03/15/20 12:10 03/15/20 12:10 03/15/20 12:10 03/15/20 12:10 03/15/20 12:10 - Notes Notes: MEDICATIONS: I agree with the patient medications as charted by the RN. ALLERGIES: I agree with the allergies as charted by the RN. PAST MEDICAL HISTORY/PAST SURGICAL HISTORY: Reviewed and agree as charted by RN. SOCIAL HISTORY: Reviewed and agree as charted by RN. FAMILY HISTORY: No significant familial comorbid conditions directly related to patient complaint EXAM: Reviewed vital signs as charted by RN. PHYSICAL EXAMINATION: reviewed vital signs by RN GENERAL: Well-appearing, well-nourished and in no acute distress. HEAD: Atraumatic, normocephalic. EYES: Pupils equal round and reactive to light, extraocular movements intact, conjunctiva are normal. ENT: Nares patent, oropharynx clear without exudates. Moist mucous membranes. NECK: Normal range of motion, supple without lymphadenopathy LUNGS: Breath sounds clear to auscultation bilaterally and equal. No wheezes rales or rhonchi. HEART: Regular rate and rhythm without murmurs. Able to reproduce chest pain on palpation that brought patient to the emergency room. ABDOMEN: Soft, nontender, nondistended abdomen. No guarding, no rebound. No masses appreciated. Female : deferred Musculoskeletal: Normal range of motion, no pitting or edema. No cyanosis. Left calf tenderness with palpation to calf. negative telma's sign. anterior and posterior drawer test negative.Dtr + 2 in BLE. Full motor and sensory function. no ecchymosis or abrasions noted. distal pulses + 2 bilaterally and equally. Bilateral lower extremity without deformity or asymmetry. No STS or edema. No overlying erythema, warmth, discoloration. No lesions or break in the skin integrity. No evidence of compartment syndrome, lymphadenopathy, gangrene. No palpable cords or evidence of thrombophlebitis. NEUROLOGICAL: Cranial nerves grossly intact. Normal speech, normal gait. Normal sensory, motor exams PSYCH: Normal mood, normal affect. SKIN: Warm, Dry, normal turgor, no rashes or lesions noted. Course - Re-evaluation Re-evalutation: 03/15/20 17:55 Afebrile vital stable no distress. Nurses notes reviewed. Blood pressure when patient came to her room was not elevated, 138/81, HR 88. EKG negative for STEMI, no ST segment elevations. CBC negative for leukocytosis or anemia, CMP negative for hepatic or renal dysfunction. Patient's serum glucose was 228, a liter of IV fluids was given to help lower her blood sugar. Patient is a type II diabetic, she does take Metformin for her glucose control. initial troponin negative. Patient states her chest pain started around 12:00 this afternoon. Initial troponin was negative however had not been 3 hours since the onset of her chest pain for the troponin to be drawn. Chest x-ray was negative for any pneumothorax, pneumonia or any other acute findings per radiology. Awaiting for venous Doppler to ultrasound patient's left calf, second troponin pending as well as urinalysis. 1730-patient refused second IV, she states that she has to leave, she has to drive her grandmother home and she cannot drive in the dark. Discussed with patient that she still needs a venous Doppler to make sure she does not have a blood clot as well as a second troponin and still waiting for urine to be resulted. Patient verbalized that she cannot stay. I did refer patient to adjunct business instructor, as well as her primary care provider and explained to her that it is AGAINST MEDICAL ADVICE that she is leaving however I cannot force her to stay and she is of able mind-body to make this decision for herself if she wants to leave. Encourage patient to return if any of her symptoms become worse immediately. after performing a Medical Screening Examination, I spoke with the patient at length in regards to leaving the hospital against medical advice. I do not believe the patient should leave but the patient is alert oriented x4, understands the risks and benefits of staying and leaving including disability and . Pt understands that he can return at any time for further care and is more than welcome to do so. Pt verbalizes this understanding. - Vital Signs Vital signs: Temp Pulse Resp BP Pulse Ox 98.3 F 88 16 138/81 H 99 03/15/20 12:10 03/15/20 12:10 03/15/20 14:30 03/15/20 14:30 03/15/20 14:30 - Laboratory Result Diagrams: 03/15/20 12:45 03/15/20 12:45 Laboratory results interpreted by me: 03/15/20 03/15/20 12:45 12:45 MCV 79 L MCH 26.2 L RDW 14.5 H BUN 6 L Creatinine 0.51 L Glucose 228 H - EKG Interpretation by Me EKG shows normal: Sinus rhythm Rate: Normal Rhythm: NSR Additional EKG results interpreted by me: 03/15/20 16:49 Heart rate 89, P axis 42, QRS [place] VII, T axis -12, no ST segment elevations, no STEMI. Interpreted by ER supervising physician Discharge - Discharge Clinical Impression: Chest pain, Pain of left calf, Hypertension Condition: Stable Disposition: AGAINST MEDICAL ADVICE Instructions: COVID-19 Guidance for Persons Under Investigation, Chest Pain of Unclear Cause ([facility]) Additional Instructions: You are leaving AGAINST MEDICAL ADVICE. Still would like to get an ultrasound of your left lower extremity make sure you do not have a blood clot, also would like to repeat a troponin to make sure your cardiac enzymes are normal. Please follow-up with a adjunct business instructor as well as your primary care provider within the next 24 to 48 hours. If you experience any worsening symptoms please return to the emergency room immediately such as chest pain, shortness of breath, fever, worsening calf pain, vomiting etc. Forms: Return to Work Referrals: KENNEDI BUTLER MD [ACTIVE PROVISIONAL STAFF] - Follow up tomorrow MINNIE BERG MD [ACTIVE STAFF] - Follow up tomorrow
[2020-03-15 14:53] VITALS: BP 138/81
[2020-03-15 17:55] LABS: APPEARANCE,URINE CLOUDY; BILIRUBIN,URINE NEGATIVE (NEGATIVE); COLOR,URINE YELLOW; GLUCOSE, URINE NEGATIVE (NEGATIVE); KETONES,URINE NEGATIVE (NEGATIVE); LEUKOCYTE ESTERASE,URINE MODERATE (NEGATIVE); NITRITE,URINE NEGATIVE (NEGATIVE); PROTEIN,URINE NEGATIVE (NEGATIVE); UROBILINOGEN,URINE NEGATIVE mg/dL (<2.0)
--- NOTE | 2020-03-15 18:06 | EKG REPORT ---
SEVERITY:- BORDERLINE ECG - SINUS RHYTHM BORDERLINE T ABNORMALITIES, INFERIOR LEADS : Confirmed by: Nickolas Escalante MD 15-Mar-2020 18:06:06
== END 2020-03-15 17:44 | disposition left against medical advice (07) ==
LOC: ER 12:04
DX: R07.9 Chest pain, unspecified (principal); M79.605 Pain in left leg; I10 Essential (primary) hypertension; Z88.0 Allergy status to penicillin; Z88.1 Allergy status to other antibiotic agents; Z88.8 Allergy status to other drugs, medicaments and biological substances; E11.9 Type 2 diabetes mellitus without complications
CPT/HCPCS: 93005; 99285; 96360; 36415; 83735; 85025; 81025; 80053; 81001; 84484; 71046; 93010; J7030

== ENCOUNTER 2020-04-18 05:30 | Day surgery (SDC) | payer MEDICAID ==
[2020-04-12 11:55] LABS: HEMATOCRIT 43.5 % (36.0-47.0); HEMOGLOBIN 13.9 g/dL (12.0-15.5); MEAN CORPUSCULAR HEMOGLOBIN 25.3 pg (27.0-33.4); MEAN CORPUSCULAR HGB CONC 32.1 g/dL (32.0-36.0); MEAN CORPUSCULAR VOLUME 79 fl (80-97); PLATELET COUNT 306 10^3/uL (150-450); RED CELL DISTRIBUTION WIDTH 14.6 % (11.5-14.0); WHITE BLOOD COUNT 7.8 10^3/uL (4.0-10.5)
[2020-04-12 12:19] LABS: ANION GAP 8 (5-19); BLOOD UREA NITROGEN 6 mg/dL (7-20); CALCIUM 9.5 mg/dL (8.4-10.2); CARBON DIOXIDE 27 mmol/L (22-30); CHLORIDE 104 mmol/L (98-107); GLUCOSE 294 mg/dL (75-110); POTASSIUM 4.7 mmol/L (3.6-5.0)
[2020-04-12 16:59] LABS: ABSOLUTE LYMPHOCYTES# (MANUAL) 2.8 10^3/uL (0.5-4.7); ABSOLUTE MONOCYTES # (MANUAL) 0.3 10^3/uL (0.1-1.4); BASOPHILS % (MANUAL) 0 % (0-2); EOSINOPHILS % (MANUAL) 6 % (0-6); LYMPHOCYTES % (MANUAL) 34 % (13-45); MONOCYTES % (MANUAL) 4 % (3-13); SEGMENTED NEUTROPHILS % (MAN) 54 % (42-78); TOTAL CELLS COUNTED 100
[2020-04-12 17:01] LABS: ANISOCYTOSIS 1+; OVALOCYTES SLIGHT; PLATELET COMMENT ADEQUATE; POIKILOCYTOSIS SLIGHT
[~2020-04-18 05:30] MED LIST changes: +CIPROFLOXACIN 400 MG/D5W RTU 400 MG/200 ML RTUPB IV ONE; +CIPROFLOXACIN 400 MG/D5W RTU 400 MG/200 ML RTUPB IV PRN; -LACTATED RINGERS 1000 ML IV PRN; -METRONIDAZOLE 500 MG/NS RTU 500 MG/100 ML RTUPB IV ONE; -METRONIDAZOLE 500 MG/NS RTU 500 MG/100 ML RTUPB IV PRN; +RINGERS SOLUTION,LACTATED 1,000 ML IV PRN
[2020-04-18] MEDS ORDERED: DEXAMETHASONE SOD PHOSPHATE INJ 4 MG/1 ML VIAL ONE (06:59)
[2020-04-18] MEDS ORDERED: PROPOFOL INJ 200 MG/20 ML VIAL IV ONE (06:59)
[2020-04-18] MEDS ORDERED: ONDANSETRON HCL INJ/PF 4 MG/2 ML SDV ONE (06:59)
[2020-04-18] MEDS ORDERED: MIDAZOLAM 2 MG/2 ML INJ ONE (06:59)
[2020-04-18] MEDS ORDERED: EPHEDRINE SULFATE INJ 50 MG/1 ML AMPULE ONE (06:59)
[2020-04-18] MEDS ORDERED: FENTANYL CITRATE INJ/PF 100 MCG/2 ML AMPUL ONE (06:59)
[2020-04-18] MEDS ORDERED: LIDOCAINE 0.5% INJ-PF (5 MG/ML) 50 ML SDV ONE (07:07)
[2020-04-18] MEDS ORDERED: BUPIVACAINE HCL 0.25 % INJ/PF (2.5 MG/1 ML) 30 ML VIAL ONE (07:07)
[2020-04-18] MEDS ORDERED: MORPHINE SULFATE 10 MG/ML INJ IV PRN (07:31)
[2020-04-18] MEDS ORDERED: DIPHENHYDRAMINE HCL 50 MG/ML VIAL IV PRN (07:31)
[2020-04-18] MEDS ORDERED: PROMETHAZINE HCL INJ 25 MG/1 ML VIAL IV PRN (07:31)
[2020-04-18] MEDS ORDERED: FENTANYL CITRATE INJ/PF 100 MCG/2 ML AMPUL IV PRN ×3 (07:31)
[2020-04-18] MEDS ORDERED: MEPERIDINE HCL/PF INJ 25 MG/1 ML DISP.SYRIN IV PRN (07:31)
--- NOTE | 2020-04-18 08:18 | Discharge Summary ---
Discharge Summary (SDC) - Discharge Final Diagnosis: Chronic right breast abscess cavity Date of Surgery: 04/18/20 Discharge Date: 04/18/20 Condition: Fair Treatment or Instructions: Start daily dressing changes, wet-to-dry with gauze. May shower with wound packing out. Patient to follow-up with Dr. [facility] in 1 to 2 weeks. Referrals: VELIA IBRAHIM MD [Primary Care Provider] - Discharge Diet: As Tolerated Discharge Activity: Activity As Tolerated Home Care Assistance: None Needed Report the Following to Your Physician Immediately: Shortness of Breath, Increase in Pain, Fever over 101 Degrees, Unusual Bleeding
--- NOTE | 2020-04-18 08:26 | Operative Report ---
Operative Report DATE OF SURGERY: 04/18/20 PREOPERATIVE DIAGNOSIS: 1. Chronic right breast-chest wall abscess cavity. 2. Morbid obesity. 3. Diabetes mellitus POSTOPERATIVE DIAGNOSIS: Same OPERATION: 1. Focused ultrasound of the right chest wall. 2. Excisional debr idement of right chest wall-medial breast abscess cavity with wound packed open SURGEON: KEO MENDENHALL ANESTHESIA: GA TISSUE REMOVED OR ALTERED: Chest wall abscess cavity, skin, subcutaneous tissue and fibrotic tissue COMPLICATIONS: None ESTIMATED BLOOD LOSS: 10 cc INTRAOPERATIVE FINDINGS: See below PROCEDURE: Patient was seen in the preop holding area where the right breast-chest wall was marked. She was then taken to the main operating room where general anesthesia was induced. Arms were tucked at patient side, anterior chest wall and draped sterile fashion with Betadine. Surgical plan and surgical timeout were conducted. Focused ultrasound of the chest wall was performed. The previous diagonally oriented scar on the extreme medial aspect of the right breast, 3 o'clock position, parasternal location was scanned with a variable frequency linear transducer. Findings were significant for small amount of fluid space in the subcutaneous tissue. There is no dominant pocket. There is a significant of the scar tissue. This is the area that was previously debrided, and redebrided on outpatient basis. This entire area was anesthetized 1% plain lidocaine. A generous ellipse of skin was now incised with a #10 blade, approximately 2 and half centimeters wide and 5-1/2 cm long. The excisional debridement was stented under the skin flaps for several centimeters to remove the entire chronically sc arred abscess cavity. Specimen was approximately 3-1/2 x 7 cm in length. It was transected on the back table, and fluid swabbed, sent for Gram stain culture and sensitivity. We reinspected the chest wall to ensure all scar tissue had been removed and we were confident this was a very complete vision. Small bleeders were as encountered. Wound irrigated several times, check for bleeding and there was none. Wound packed open, as planned, approximately 10 inches of performed packing. Patient tolerated procedure well, extubated, taken to the recovery room in stable condition.
[2020-04-18] MEDS ORDERED: INSULIN REG, HUMAN 100 UNIT/ML 3 ML VIAL (PYX) ONE (08:50)
[2020-04-18] MEDS ORDERED: INSULIN REG, HUMAN 100 UNIT/ML 3 ML VIAL (PYX) SUBCUT ONE (09:30)
[2020-04-18] MEDS ORDERED: SUCCINYLCHOLINE CHLORIDE INJ 200 MG/10 ML VIAL ONE (10:04)
[2020-04-18] MEDS ORDERED: ROCURONIUM BROMIDE INJ 50 MG/5 ML VIAL IV ONE (10:04)
[2020-04-18] MEDS ORDERED: KETOROLAC TROMETHAMINE 60 MG/2 ML SDV ONE (10:04)
[2020-04-18] MEDS ORDERED: LIDOCAINE 2% INJ-PF (20 MG/ML) 2 ML AMPUL ONE (10:04)
[2020-04-18 10:49] VITALS: BP 103/61
== END 2020-04-18 10:05 | disposition home or self-care (01) ==
LOC: OROUT 05:30
PROVIDERS: ATTEND Surgery
DX: N61.1 Abscess of the breast and nipple (principal); E66.01 Morbid (severe) obesity due to excess calories; E11.9 Type 2 diabetes mellitus without complications; Z20.828 Contact with and (suspected) exposure to other viral communicable diseases; Z80.3 Family history of malignant neoplasm of breast; Z79.899 Other long term (current) drug therapy; Z79.84 Long term (current) use of oral hypoglycemic drugs
CPT/HCPCS: 11042; 11045; 36415; 87070; 87205; 82962; 85025; 87635; 81025; 87075; 80048; 83036; 88307 ×2; 88312 ×2; J2250; J3490 ×4; J1100; J1885; J3010; J1815; J0330; J2405; J2704; J0744; C9803; 400; 87077